=== PATIENT | male | born 1990 | race Caucasian/White ===

== ENCOUNTER 2024-05-12 19:42 | Emergency (ER) | payer BC, SELFPAY ==
[2024-05-12 19:54] VITALS: BP 148/97; PULSE 99; RESP 20; TEMP 37.1; O2SAT 97; BMI 33.0
--- NOTE | 2024-05-12 19:55 | ED.GENADULT ---
HPI - General Adult General Stated complaint: 2 cracked teeth pain Time Seen by Provider: 05/12/24 19:55 Source: patient Mode of arrival: ambulatory Limitations: no limitations History of Present Illness ED Provider: SHAWN Estevez HPI narrative: 33-year-old male presents with right-sided dental pain ongoing for the past few days worsening. Patient reports he has been trying to get in with a dentist however due to insurance issues he has not been able he reports his dental pain has been worsening since last night, he was recently put on antibiotics and completed them a few days ago despite this pain persists. Reports pain is 10/10. Worse with hot and cold foods. He plans to go to a dentist tomorrow. He has been taking ibuprofen and Tylenol with no relief of symptoms. Patient visibly uncomfortable upon history taking. Denies fevers, chills, difficulty swallowing, changes in voice, neck pain, recent illness, headache, dizziness, weakness, chest pain, shortness of breath. Related Data Previous Rx's ?Medication ?Instructions ?Recorded oxycodone 5 mg capsule 5 mg PO BID PRN pain #7 caps 05/12/24 Allergies Allergy/AdvReac Type Severity Reaction Status Date / Time No Known Allergies Allergy Verified 05/12/24 19:57 Review of Systems Review of Systems: Yes all other systems are reviewed and are negative PMFSH Past Medical History Attestation statement: The following information was validated with the patient. Source: old records reviewed and nursing notes reviewed Physical Exam ED Vital Signs: vss Appearance: Alert.? Oriented X3.? No acute distress.? Head: Normocephalic, atraumatic, no step-offs or deformities Eyes: Pupils equal, round and reactive to light.? ENT: Pharynx normal.?Uvula midline + multiple caries throughout, poor dentition, two cracked teeth right lower side #30,31 w/ dental pulp visible , + halitosis. No visualized abscess. Neck: Normal inspection.? Neck supple.? CVS: Pulses normal.? Respiratory: No respiratory distress.? Skin: Skin warm and dry.? Normal skin color.? Normal skin turgor.? Extremities: No lower extremity edema.? 5/5 strength to bilateral upper and lower extremities Neuro: Oriented X 3.? No motor deficit.? No sensory deficit. CN 2-12 intact Course Reevaluation(s) Reevaluation #1: I did review patient's ROPE C[employer]TER Educated patient on diagnosis and treatment plan, answered all question, patient verbalizes understanding. At this time patient will be discharged home, advised to return with new or worsening symptoms. Educated on worrisome signs and symptoms and when to return. At this time I feel comfortable discharge home. Time: 20:04 Medical Decision Making Medical Decision Making MDM Narrative: 33-year-old male presents with dental pain ongoing for a few days worsening. On exam + multiple caries throughout, poor dentition, two cracked teeth right lower side #30,31 w/ dental pulp visible , + halitosis. No visualized abscess. history and physical exam concerning for multiple dental fractures with visible pulp/nerve exposure. No signs of abscess, threat to airway, acute respiratory distress, peritonsillar or retropharyngeal abscess. No signs of infection, or Merlin's. Plan dc from the waiting room with short supply of oxycodone. patient is visibly uncomfortable has trialed [id number] with little to no relief. He has had oxycodone in the past with no adverse effects. Educated on proper narcotic use. Differential Diagnosis Differential Diagnoses: The differential diagnosis associated with the presentation includes ( history and physical exam concerning for multiple dental fractures with visible pulp/nerve exposure. No signs of abscess, threat to airway, acute respiratory distress, peritonsillar or retropharyngeal abscess. No signs of infection, or Merlin's.) Admission/Observation Consideration of admission/observation: Escalation of care including admission/observation considered Critical Care Time Critical Care Time Critical Care Time: No Discharge Plan Discharge Clinical Impression: Pain, dental Patient Disposition: Home, Self-Care Instructions: Toothache (ED) Additional Instructions: Take your medications as prescribed. If you were prescribed antibiotics today, it is important that you take your medication to their entirety, do not skip any doses, do not finish them early. Follow-up with your primary care provider this week. Return to the emergency department with new or worsening symptoms. Such as fevers, chills, chest pain, shortness of breath, nausea, vomiting, dizziness, headache, vision changes, lethargy In case of emergency call 911 A narcotic has been sent to your pharmacy please take this as prescribed. Do not take more than the prescribed dose. Narcotic medications can cause addiction. Please do not mix them with alcohol. Do not take them while driving or operating machinery. Do not take them with any other narcotics. Do not share them with friends or family. They can cause constipation. Take them only for severe pain. [facility] [phone] Prescriptions: New oxycodone 5 mg capsule 5 mg PO BID PRN (Reason: pain) Qty: 7 0RF Rx Instructions: Partial Fill upon patient request. Referrals: Physician,Unknown J [Primary Care Provider] - 2 days Stand Alone Forms: Work/School Release
[2024-05-12 20:10] VITALS: BP 148/97; PULSE 99; RESP 20; TEMP 37.1; O2SAT 97
== END 2024-05-12 20:11 | disposition home or self-care (01) ==
LOC: HO.ED 20:10
PROVIDERS: Emergency Provider Emergency Medicine; PCP Internal Medicine
DX: K08.89 Other specified disorders of teeth and supporting structures (principal); K02.9 Dental caries, unspecified
CPT/HCPCS: 99282; 99283

== ENCOUNTER 2024-05-13 23:32 | Emergency (ER) | payer BC, SELFPAY ==
[2024-05-13 23:33] VITALS: BP 145/91; PULSE 100; RESP 20; TEMP 36.8; O2SAT 98; BMI 34.8
--- NOTE | 2024-05-14 03:24 | ED_ITS ---
HPI - General Adult General Chief complaint: Dental/Oral Stated complaint: tooth pain/here yesterday Time Seen by Provider: 05/14/24 03:12 Source: patient Limitations: no limitations History of Present Illness ED Provider: Kim Mccall PA-C HPI narrative: 33-year-old male presents with right-sided dental pain ongoing for the past few days worsening. Patient reports he has been trying to get in with a dentist, he has pending appointment on Thursday. Patient states he was here yesterday, he received oxycodone for his pain. Patient just completed a course of antibiotics for his suspect dental infection; he was on amoxicillin. Patient now is developing sore throat. Denies fever. Related Data Previous Rx's ?Medication ?Instructions ?Recorded oxycodone 5 mg capsule 5 mg PO BID PRN pain #7 caps 05/12/24 Allergies Allergy/AdvReac Type Severity Reaction Status Date / Time No Known Allergies Allergy Verified 05/13/24 23:36 Review of Systems Review of Systems: Yes all other systems are reviewed and are negative Constitutional: Constitutional: Denies fatigue and Denies fever(s) ENT: Reports dental pain and Reports sore throat Cardiovascular: Cardiovascular: Denies chest pain Respiratory: Respiratory: Denies cough Gastrointestinal: Gastrointestinal: Denies nausea and Denies vomiting Endocrine: Endocrine: Denies fatigue [facility] Past Medical History Attestation statement: The following information was validated with the patient. Social History Social History Advance Directives: No Advance Directives Information Provided: Yes Do you have a plan to hurt others: No Plan Physical Exam ED Vital Signs: Vital Signs - 24 hr 05/13/24 23:33 Temperature 98.2 F Pulse Rate 100 Respiratory Rate 20 Blood Pressure 145/91 H Pulse Oximetry 98 Oxygen Delivery Method Room Air BMI result Body Mass Index 34.8 Const Other: Alert Orientation/consciousness: patient oriented x3 HENMT Other: Oropharynx is mildly erythematous, no exudate, uvula midline, no sublingual fluctuance, no swelling inferior to the jawline, no trismus no drooling. Teeth number 32 and 31 are both broken, no purulence from either site no erythema along the gum tooth margin Neck Other: Some reactive cervical anterior nodes Resp Effort & Inspection: normal respiratory effort Cardio Other: Normal peripheral perfusion Skin Other: Warm dry no rash Neuro General: patient oriented x3, gait normal, no focal motor deficits and CN's II- XI intact bilaterally Psych Other: Cooperative Medications Administered Discontinued Medications Generic Name Dose Route Start Last Admin Trade Name Rin PRN Reason Stop Dose Admin Al Hydroxide/Mg Hydroxide 30 ml 05/14/24 03:30 05/14/24 03:36 Magnesium Hydrox/Alum Hydrox 30 Ml Oral.Susp PO 05/14/24 03:31 30 ml ONCE ONE Administration Ketorolac Tromethamine 15 mg 05/14/24 03:30 05/14/24 03:37 Ketorolac Tromethamine 15 Mg/Ml Vial IM 05/14/24 03:31 15 mg ONCE ONE Administration Lidocaine HCl 15 ml 05/14/24 03:30 05/14/24 03:36 Lidocaine Hcl Viscous 2 % 15 Ml Solution MUCOUS MEM 05/14/24 03:31 15 ml ONCE ONE Administration Medical Decision Making Medical Decision Making MDM Narrative: 33-year-old male presents with right-sided dental pain ongoing for the past few days worsening. Patient reports he has been trying to get in with a dentist, he has pending appointment on Thursday. Patient states he was here yesterday, he received 1 oxycodone for his pain. Patient just completed a course of antibiotics for his suspect dental infection; he was on amoxicillin. Patient now is developing sore throat. Denies fever. Problem: Poor dentition History: Per patient I have considered the following differential diagnoses: Dental abscess, dental gely, dry socket, medication seeking behavior, strep pharyngitis Plan: Patient states he received a 1 time dose of oxycodone, I reviewed his discharge paperwork from yesterday, he received a script for oxycodone. I am concerned for medication seeking behaviors. He states he is now having a sore throat, this could be reactive from his dental infection, we will swab him for strep. We will be giving Toradol, Maalox and lidocaine. I have independently reviewed the following tests: Strep screen: Lab Data Labs: Lab Results 05/14/24 Range/Units 03:35 S. pyogenes GrpA HERI Negative (Negative) Discharge Plan Discharge Clinical Impression: Pharyngitis, Dental infection Patient Disposition: Home, Self-Care Instructions: Dental Abscess (ED) Additional Instructions: The strep screen was negative. You're sore throat is likely reactive from your dental infection. Warm saltwater gargles we will help your pain. You also have oxycodone that was prescribed to you yesterday, you should have a sufficient amount to get you through until Thursday. You can also use [id number]-[id number] ibuprofen 600 mg taken every 6 hours with food. Make sure you keep your appointment with your dentist. Prescriptions: No Action oxycodone 5 mg capsule 5 mg PO BID PRN (Reason: pain) Qty: 7 0RF Rx Instructions: Partial Fill upon patient request. Print Language: [place]
[2024-05-14] MEDS: Magnesium Hydrox/Alum Hydrox 30 ML ORAL.SUSP PO (03:36)
[2024-05-14] MEDS: Lidocaine HCl Viscous 2 % 15 ML SOLUTION MUCOUS MEM (03:36)
[2024-05-14] MEDS: Ketorolac Tromethamine 15 MG/ML VIAL IM (03:37)
[2024-05-14 03:54] LABS: IDNOW Serial# 58CA691E; Strep A Nucleic Acid Negative (Negative)
[2024-05-14 04:07] VITALS: BP 150/104; PULSE 78; RESP 16; TEMP 36.5; O2SAT 98
== END 2024-05-14 04:08 | disposition home or self-care (01) ==
PROVIDERS: Physician Assistant Medical; Emergency Provider Emergency Medicine Emergency Medical Services; PCP Internal Medicine
DX: J02.9 Acute pharyngitis, unspecified (principal); K04.7 Periapical abscess without sinus
CPT/HCPCS: 87651; 96372; 99284; J1885